=== PATIENT | male | born 1960 | race African-American/Black ===

== ENCOUNTER 2017-08-09 09:35 | Emergency (ER) | payer OTHER ==
[2017-08-09 09:44] VITALS: BP 156/92; BMI 35.1
--- NOTE | 2017-08-09 10:09 | DR.URIAD ---
HPI - Time Seen Time seen: 10:00 - PCP Primary Care Physician: LEXX LIANG - HPI Comment HPI Comment: NO FEVER. COUGH PRODUCTIVE, YELLOW SPUTUM. NOW SOB AND HAVING CHEST PAIN. HISTORY CHF ON LASIX. DYSPNES ON EXERTION. SLEPT IN RECLINER PAST 2 DAYS. - Complaint Chief Complaint Doctors Comments: COLD, COUGH CONGESTION TIMES 5 DAYS. SOB AND CHEST PAIN ALSO. Chief Complaint:: PT C/O CCC, SINCE LAST WEDNESDAY.. Self Treatment fo Chief Complaint: PT STATES " I JUST WANTED TO COME DO TO BE CHECKED DUE TO MY HEART CONDITON,, - Reviewed Nurses Notes Reviewed: Yes - Source History Provided: Patient - Mode of Arrival Mode of Arrival: Ambulatory - Timing Onset of Chief Complaint: 08/03/17 - Context Recent Treated Infections: None History of Respiratory: None - Quality Quality of Cough: Productive Rhinorrhea: Green Shortness of Breath: Mild - Associated Signs and Symptoms Other Signs and Symptoms: Cough, Shortness of Breath PMH - PMH Past Medical History: Yes Past Medical History: CHF, Hypertension Past Medical History Comment: CAD Past Surgical History: Yes Surgical History: Angioplasty/Stents Past Surgical History Comment: DEFIBILATOR.. - Family History History of Family Medical Conditions: No - Social History Does patient currently use any type of tobacco product: No Have you used tobacco products in the last 12 months: No Type of Tobacco Use: None Does any household member use tobacco: No Alcohol Use: None Do you use any recreational Drugs:: No Lives With: Family Lives Where: Home - infectious screening In the last 2 months have you had wt loss of >10#?: NO Have you had fever, night sweats or hemotysis?: No Have you traveled outside the country in the last 6 months?: No Isolation: Standard ROS - Review of Systems Constitutional: No Symptoms Reported Eyes: No Symptoms Reported ENTM: Ear Pain, Nose Discharge, Nose Congestion, Throat Pain Respiratoy: No Symptoms Reported, Productive Cough, Short of Breath. negative: Wheezing, Hemoptysis Cardiovascular: Chest Pain Gastrointestinal/Abdominal: Nausea Genitourinary: No Symptoms Reported Neurological: No Symptoms Reported Musculoskeletal: No Symptoms Reported Integumentary: No Symptoms Reported Hematologic/Lymphatic: No Symptoms Reported Endocrine: No Symptoms Reported All Other Systems: Reviewed and Negative PE - Vital Signs Vitals: Temperature 96.6 F Pulse Rate 73 Respiratory Rate 20 Blood Pressure 156/92 O2 Sat by Pulse Oximetry 96 - General Limitations: No Limitations General Appearance: Alert - Head Head Exam: Normal Inspection - Eyes Eye exam: Normal Appearance - ENT ENT Exam: Normal External Ear Exam External Ear Exam: Normal External Inspection TM/Canal Exam: Bilateral Normal Mouth Exam: Normal Inspection Throat Exam: Tonsillar Erythema, Tonsillomegaly. negative: Tonsillar Exudate - Neck Neck Exam: Trachea Midline - Chest Chest Inspection: Symmetric Chest Wall Rise - Respiratory Respiratory Exam: Normal Lung Sounds Bilat Respiratory Exam: Bilateral Rhonchi, Lower Rhonchi - Cardiovascular Cardiovascular Exam: Regular Rate, Normal Rhythm, Normal Heart Sounds - Abdominal Exam Abdominal Exam: Normal Bowel Sounds, Soft. negative: Tenderness - Extremeties Extremities Exam: Normal Inspection - Back Back Exam: Normal Inspection - Neurologic Neurological Exam: Alert, Oriented X3 - Psychiatric Psychiatric Exam: Normal Affect, Normal Mood - Skin Skin Exam: Normal Color MDM - Differential Diagnosis Differential Diagnosis: Otitis media, Streptococcal pharyngitis, Viral pharyngitis, Pneumonia, Sinsusitis, URI Course - Treatment Treatment: SEE ORDERS. LASIX 80MG IV IN ED AND KCL 2MEQ PO IN ED. - Education/Counseling Education/Counseling: Patient, Education Educated On: Treatment, Diagnosis, Needs for Follow Up ROR - Labs Reviewed Laboratory Results Reviewed?: Yes Result Diagrams: 08/09/17 10:46 08/09/17 10:46 Laboratory: WBC 8.2 X10^3/uL (3.6-10.0) 08/09/17 10:46 RBC 5.08 X10^6/uL (4.7-6.0) 08/09/17 10:46 Hgb 15.3 g/dL (13.5-18.0) 08/09/17 10:46 Hct 44.4 % (42.0-54.0) 08/09/17 10:46 MCV 87.4 fL (80.0-100.0) 08/09/17 10:46 MCH 30.1 pg (27.0-34.0) 08/09/17 10:46 MCHC 34.4 g/dL (33.0-35.0) 08/09/17 10:46 RDW 14.7 % (11.6-16.5) 08/09/17 10:46 Plt Count 186 X10^3/uL (150.0-450.0) 08/09/17 10:46 MPV 9.2 fL (7.4-11.0) 08/09/17 10:46 Neut % 51.3 % (42.0-75.0) 08/09/17 10:46 Lymph % 28.3 % (21.0-51.0) 08/09/17 10:46 [place] % 13.8 % (0.0-13.0) H 08/09/17 10:46 Eos % 5.2 % (0.9-2.9) H 08/09/17 10:46 Baso % 1.4 % (0.2-1.0) H 08/09/17 10:46 Neut # 4.2 x10^3/uL (2.2-4.8) 08/09/17 10:46 Lymph # 2.3 X10^3/uL (1.3-2.9) 08/09/17 10:46 [place] # 1.1 x10^3/uL (0.3-0.8) H 08/09/17 10:46 Eos # 0.4 x10^3/uL (0.0-0.2) H 08/09/17 10:46 Baso # 0.1 X10^3/uL (0.0-0.1) 08/09/17 10:46 Absolute Nucleated RBC 0.1 /100WBC 08/09/17 10:46 Sodium 137 mmol/L (136-145) 08/09/17 10:46 Corrected Sodium TNP 08/09/17 10:46 Potassium 4.2 mmol/L (3.5-5.1) 08/09/17 10:46 Chloride 101 mmol/L (98-107) 08/09/17 10:46 Carbon Dioxide 31.1 mmol/L (21-32) 08/09/17 10:46 BUN 14 mg/dL (7-18) 08/09/17 10:46 Creatinine 1.16 mg/dL (0.70-1.30) 08/09/17 10:46 Est GFR (MDRD) Af Amer > 60 (>60) 08/09/17 10:46 Est GFR (MDRD) Non-Af > 60 (>60) 08/09/17 10:46 Glucose 103 mg/dL (65-99) H 08/09/17 10:46 Calcium 9.2 mg/dL (8.5-10.1) 08/09/17 10:46 Corrected Calcium TNP 08/09/17 10:46 Total Bilirubin 0.70 mg/dL (0.2-1.0) 08/09/17 10:46 AST 30 Units/L (15-37) 08/09/17 10:46 ALT 34 Units/L (12-78) 08/09/17 10:46 Alkaline Phosphatase 101 Units/L (46-116) 08/09/17 10:46 B-Natriuretic Peptide 102 pg/mL (0-79) H 08/09/17 10:46 Total Protein 8.1 g/dL (6.4-8.2) 08/09/17 10:46 Albumin 3.7 g/dL (3.4-5.0) 08/09/17 10:46 Globulin 4.4 g/dL (2.5-4.5) 08/09/17 10:46 Albumin/Globulin Ratio 0.8 Ratio (1.1-2.1) L 08/09/17 10:46 - XRAY XRAY Findings: REPORT DISCUSS WITH PATIENT. - Diagnosis Discharge Problem: Bronchitis CHF (congestive heart failure) Qualifiers: Congestive heart failure type: combined Congestive heart failure chronicity: acute on chronic Qualified Code(s): I50.43 - Acute on chronic combined systolic (congestive) and diastolic (congestive) heart failure - Discharge Plan Disposition: HOME, SELF-CARE Condition: Stable Prescriptions: Benzonatate [TESSALON PERLES *] 200 mg PO TID PRN #30 cap PRN Reason: Cough Doxycycline Monohydrate 100 mg PO BID #20 tablet - Follow ups/Referrals Follow ups/Referrals: NFD,None [Primary Care Provider] - 08/10/17 - Instructions Instructions: Acute Bronchitis, [id number], Heart Failure, [id number] Additional Instructions: RETURN TO ED IF WORSE.
[2017-08-09 11:02] LABS: BASOPHILS # (AUTO) 0.1 X10^3/uL (0.0-0.1); BASOPHILS % (AUTO) 1.4 % (0.2-1.0); EOSINOPHILS # (AUTO) 0.4 x10^3/uL (0.0-0.2); EOSINOPHILS % (AUTO) 5.2 % (0.9-2.9); HEMATOCRIT 44.4 % (42.0-54.0); HEMOGLOBIN 15.3 g/dL (13.5-18.0); LYMPHOCYTES # (AUTO) 2.3 X10^3/uL (1.3-2.9); LYMPHOCYTES % (AUTO) 28.3 % (21.0-51.0); MEAN CORPUSCULAR HEMOGLOBIN 30.1 pg (27.0-34.0); MEAN CORPUSCULAR HGB CONC 34.4 g/dL (33.0-35.0); MEAN CORPUSCULAR VOLUME 87.4 fL (80.0-100.0); MEAN PLATELET VOLUME 9.2 fL (7.4-11.0); MONOCYTES # (AUTO) 1.1 x10^3/uL (0.3-0.8); MONOCYTES % (AUTO) 13.8 % (0.0-13.0); NEUTROPHILS # (AUTO) 4.2 x10^3/uL (2.2-4.8); NEUTROPHILS % (AUTO) 51.3 % (42.0-75.0); PLATELET COUNT 186 X10^3/uL (150.0-450.0); RED BLOOD COUNT 5.08 X10^6/uL (4.7-6.0); RED CELL DISTRIBUTION WIDTH 14.7 % (11.6-16.5); WHITE BLOOD COUNT 8.2 X10^3/uL (3.6-10.0)
--- NOTE | 2017-08-09 11:04 | RAD ---
Examination: Chest, PA and lateral views History: Chest pain Findings: There is mild cardiomegaly with pacemaker. There is cephalization of pulmonary blood flow w ith interstitial prominence. No consolidation or pleural fluid identified. Impression: Cardiomegaly with pacer, vascular changes consistent with pulmonary venous hypertension/e nicky CHF. Reported By:
[2017-08-09 11:09] LABS: ALANINE AMINOTRANSFERASE 34 Units/L (12-78); ALBUMIN 3.7 g/dL (3.4-5.0); ALKALINE PHOSPHATASE 101 Units/L (46-116); ASPARTATE AMINO TRANSFERASE 30 Units/L (15-37); BLOOD UREA NITROGEN 14 mg/dL (7-18); CALCIUM 9.2 mg/dL (8.5-10.1); CARBON DIOXIDE 31.1 mmol/L (21-32); CHLORIDE 101 mmol/L (98-107); CREATININE 1.16 mg/dL (0.70-1.30); SODIUM 137 mmol/L (136-145); TOTAL PROTEIN 8.1 g/dL (6.4-8.2); eGFR BLACK RACES > 60 (>60); eGFR NON BLACK RACES > 60 (>60)
[2017-08-09 11:20] LABS: B-TYPE NATRIURETIC PEPTIDE 102 pg/mL (0-79)
[2017-08-09] MEDS ORDERED: LASIX IVP ONE ×2 (11:34→11:48)
[2017-08-09] MEDS ORDERED: ROCEPHIN 1 GM IV PREMIX 1 GM/50 ML IV.SOLN. IV ONE (11:36)
[2017-08-09] MEDS ORDERED: ROCEPHIN VIAL 1 GM 1 GM in NS 50 ML IV + SPIKE MINIBAG* 50 ML IV ONE (11:45)
[2017-08-09] MEDS ORDERED: LASIX IVP SCH (12:00)
[2017-08-09] MEDS ORDERED: K-DUR TAB 20 MEQ PO ONE ×2 (12:25→12:40)
== END 2017-08-09 12:49 | disposition home or self-care (01) ==
LOC: ER 09:52
DX: I50.43 Acute on chronic combined systolic (congestive) and diastolic (congestive) heart failure (principal); J40 Bronchitis, not specified as acute or chronic; I51.7 Cardiomegaly
CPT/HCPCS: 36415; 71020; 80053; 83880; 85025; 96365; 96374; 96375; 99282; 99283; A4222; J0696; J1940

== ENCOUNTER 2017-11-26 10:23 | Emergency (ER) | payer OTHER ==
[2017-11-26 10:30] VITALS: BMI 34.9
--- NOTE | 2017-11-26 10:48 | DR.N/VMALE ---
HPI - Time Seen Time seen: 10:35 - Primary Care Physician Primary Care Physician: isha in [place] - HPI Comment HPI Comment: PAIN AND DISCOMFORT WORSE TODAY. PRESSURE PAIN. HISTORY CAD, S/P STENDS AND HAVE INDWELLING PACER DEVICE. - Complaints Chief Complaint Doctors Comments: CHEST AND EPIGATRIC PAIN FOR OVER ONE WEEK. Chief Complaint:: pt stated he has been nauseated on and off for a week. when he gets up and moves its worse with pressure in his epigastric area. - Reviewed Nurses Notes Reviewed: Yes - Source History Provided: Patient - Mode of Arrival Mode of Arrival: Ambulatory - Timing Onset of Chief Complaint: 11/19/17 - Context Onset: Spontaneous Recent: None History of: None - Associated Signs and Symptoms Abdominal Pain Quality: Burning, Other (PRESSURE) Abdominal Pain Location: Epigastric Symptoms: Abdominal Pain (EPIGASTRIC) PMH - PMH Past Medical History: Yes Past Medical History: CHF, Hypertension Past Surgical History: Yes Surgical History: Angioplasty/Stents - Family History History of Family Medical Conditions: Yes Family Medical History: Cancer - Social History Does patient currently use any type of tobacco product: No Have you used tobacco products in the last 12 months: No Type of Tobacco Use: None Does any household member use tobacco: No Alcohol Use: None Do you use any recreational Drugs:: No Lives With: Family Lives Where: Home - infectious screening In the last 2 months have you had wt loss of >10#?: NO Have you had fever, night sweats or hemotysis?: No Have you traveled outside the country in the last 6 months?: No Isolation: Standard ROS - Review of Systems Constitutional: negative: Chills, Fever Eyes: No Symptoms Reported ENTM: No Symptoms Reported Respiratoy: Short of Breath (ON EXERTION). negative: Productive Cough, Non- Productive Cough, Wheezing, Hemoptysis Cardiovascular: Chest Pain Gastrointestinal/Abdominal: Abdominal Pain Genitourinary: negative: Dysuria, Hematuria Neurological: No Symptoms Reported Musculoskeletal: Muscle Pain Integumentary: No Symptoms Reported Hematologic/Lymphatic: No Symptoms Reported Endocrine: No Symptoms Reported All Other Systems: Reviewed and Negative PE - Vital Signs Vitals: Temperature 98.4 F Pulse Rate [Apical] 113 Pulse Rate 85 Respiratory Rate 17 Blood Pressure [Right Arm] 150/80 Blood Pressure 141/79 O2 Sat by Pulse Oximetry 99 - General Limitations: No Limitations General Appearance: Alert - Head Head Exam: Normal Inspection - Eyes Eye exam: Normal Appearance - ENT ENT Exam: Normal External Ear Exam - Chest Chest Inspection: Symmetric Chest Wall Rise - Respiratory Respiratory Exam: Normal Lung Sounds Bilat Respiratory Exam: Bilateral Clear to Auscultation - Cardiovascular Cardiovascular Exam: Regular Rate, Normal Rhythm, Normal Heart Sounds - Abdominal Exam Abdominal Exam: Normal Inspection - Rectal Rectal Exam: Deferred - Exam: Male: Deferred - Extremities Extremities Exam: Normal Inspection - Back Back Exam: Normal Inspection - Neurologic Neurological Exam: Alert, Oriented X3, CN II-XII Intact. negative: Motor Sensory Deficit - Psychiatric Psychiatric Exam: Normal Affect, Normal Mood - Skin Skin Exam: Normal Color MDM - Differential Diagnosis Differential Diagnosis: Considerations may Include:: Gastroenteritis, Pancreatitis, PUD, Urolithiasis Differential Diagnosis Comment: ID, PE, ANGINA Course - Treatment Treatment: SEE ORDERS. - Education/Counseling Education/Counseling: Patient, Education Educated On: Diagnosis ROR - Labs Reviewed Laboratory Results Reviewed?: Yes Result Diagrams: 11/26/17 11:00 11/26/17 11:00 Laboratory: WBC 9.4 X10^3/uL (3.6-10.0) 11/26/17 11:00 RBC 4.66 X10^6/uL (4.7-6.0) L 11/26/17 11:00 Hgb 13.9 g/dL (13.5-18.0) 11/26/17 11:00 Hct 41.1 % (42.0-54.0) L 11/26/17 11:00 MCV 88.2 fL (80.0-100.0) 11/26/17 11:00 MCH 29.8 pg (27.0-34.0) 11/26/17 11:00 MCHC 33.8 g/dL (33.0-35.0) 11/26/17 11:00 RDW 15.5 % (11.6-16.5) 11/26/17 11:00 Plt Count 221 X10^3/uL (150.0-450.0) 11/26/17 11:00 MPV 9.1 fL (7.4-11.0) 11/26/17 11:00 Neut % (Auto) 67.9 % (42.0-75.0) 11/26/17 11:00 Lymph % (Auto) 19.0 % (21.0-51.0) L 11/26/17 11:00 [place] % (Auto) 10.0 % (0.0-13.0) 11/26/17 11:00 Eos % (Auto) 2.2 % (0.9-2.9) 11/26/17 11:00 Baso % (Auto) 0.9 % (0.2-1.0) 11/26/17 11:00 Neut # (Auto) 6.4 x10^3/uL (2.2-4.8) H 11/26/17 11:00 Lymph # (Auto) 1.8 X10^3/uL (1.3-2.9) 11/26/17 11:00 [place] # (Auto) 0.9 x10^3/uL (0.3-0.8) H 11/26/17 11:00 Eos # (Auto) 0.2 x10^3/uL (0.0-0.2) 11/26/17 11:00 Baso # (Auto) 0.1 X10^3/uL (0.0-0.1) 11/26/17 11:00 Absolute Nucleated RBC 0.0 /100WBC 11/26/17 11:00 D-Dimer 1610 ng/mL (0-400) H* 11/26/17 11:00 Sodium 141 mmol/L (136-145) 11/26/17 11:00 Corrected Sodium TNP 11/26/17 11:00 Potassium 3.8 mmol/L (3.5-5.1) 11/26/17 11:00 Chloride 103 mmol/L (98-107) 11/26/17 11:00 Carbon Dioxide 27.9 mmol/L (21-32) 11/26/17 11:00 BUN 17 mg/dL (7-18) 11/26/17 11:00 Creatinine 1.02 mg/dL (0.70-1.30) 11/26/17 11:00 Est GFR (MDRD) Af Amer > 60 (>60) 11/26/17 11:00 Est GFR (MDRD) Non-Af > 60 (>60) 11/26/17 11:00 Glucose 91 mg/dL (65-99) 11/26/17 11:00 Calcium 8.7 mg/dL (8.5-10.1) 11/26/17 11:00 Corrected Calcium TNP 11/26/17 11:00 Total Bilirubin 1.20 mg/dL (0.2-1.0) H 11/26/17 11:00 AST 66 Units/L (15-37) H 11/26/17 11:00 ALT 135 Units/L (12-78) H 11/26/17 11:00 Alkaline Phosphatase 106 Units/L (46-116) 11/26/17 11:00 Creatine Kinase 280 Units/L (39-308) 11/26/17 14:34 CK-MB (CK-2) 2.5 ng/mL (0-4.0) 11/26/17 14:34 CK/CKMB % Calc 0.9 % (<4) 11/26/17 14:34 Troponin I 0.53 ng/mL (0-1.5) 11/26/17 14:34 Total Protein 8.0 g/dL (6.4-8.2) 11/26/17 11:00 Albumin 3.7 g/dL (3.4-5.0) 11/26/17 11:00 Globulin 4.3 g/dL (2.5-4.5) 11/26/17 11:00 Albumin/Globulin Ratio 0.9 Ratio (1.1-2.1) L 11/26/17 11:00 Amylase 67 Units/L (25-115) 11/26/17 11:00 Lipase 167 Units/L (73-393) 11/26/17 11:00 H. pylori IgG Antibody Positive (NEGATIVE) A 11/26/17 11:00 - XRAY XRAY Interpreted by: Radiologist XRAY Findings: REPORT DISCUSS WITH PATIENT. - Diagnosis Discharge Problem: Helicobacter pylori antibody positive, Cardiac enzymes elevated Chest pain Qualifiers: Chest pain type: precordial pain Qualified Code(s): R07.2 - Precordial pain CHF (congestive heart failure) Qualifiers: Heart failure type: combined systolic and diastolic Heart failure chronicity: acute on chronic Qualified Code(s): I50.43 - Acute on chronic combined systolic (congestive) and diastolic (congestive) heart failure - Discharge Plan Disposition: 07 AGAINST MEDICAL ADVICE Condition: Stable - Follow ups/Referrals Follow ups/Referrals: NFD,None [Primary Care Provider] - 3 days - Instructions Instructions: Helicobacter Pylori Antibodies Test, Heart Failure, [id number] , Chest Pain Observation Additional Instructions: RETURN TO ED WISH. YOU ARE DISCHARGE AMA DUE TO THE FACT THAT YOU CARDIAC ENZYME IS ABNORMAL AND WE RECOMMEND IN HOSPITAL OBSERVATION. YOU DO NOT WISH TO STAY AT THIS TIME.
[2017-11-26 11:08] LABS: BASOPHILS # (AUTO) 0.1 X10^3/uL (0.0-0.1); BASOPHILS % (AUTO) 0.9 % (0.2-1.0); EOSINOPHILS # (AUTO) 0.2 x10^3/uL (0.0-0.2); EOSINOPHILS % (AUTO) 2.2 % (0.9-2.9); HEMATOCRIT 41.1 % (42.0-54.0); HEMOGLOBIN 13.9 g/dL (13.5-18.0); LYMPHOCYTES # (AUTO) 1.8 X10^3/uL (1.3-2.9); MEAN CORPUSCULAR HEMOGLOBIN 29.8 pg (27.0-34.0); MEAN CORPUSCULAR HGB CONC 33.8 g/dL (33.0-35.0); MEAN CORPUSCULAR VOLUME 88.2 fL (80.0-100.0); MEAN PLATELET VOLUME 9.1 fL (7.4-11.0); MONOCYTES # (AUTO) 0.9 x10^3/uL (0.3-0.8); NEUTROPHILS # (AUTO) 6.4 x10^3/uL (2.2-4.8); NEUTROPHILS % (AUTO) 67.9 % (42.0-75.0); PLATELET COUNT 221 X10^3/uL (150.0-450.0); RED BLOOD COUNT 4.66 X10^6/uL (4.7-6.0); RED CELL DISTRIBUTION WIDTH 15.5 % (11.6-16.5); WHITE BLOOD COUNT 9.4 X10^3/uL (3.6-10.0)
[2017-11-26 11:28] LABS: BLOOD UREA NITROGEN 17 mg/dL (7-18); CALCIUM 8.7 mg/dL (8.5-10.1); CARBON DIOXIDE 27.9 mmol/L (21-32); CHLORIDE 103 mmol/L (98-107); CREATININE 1.02 mg/dL (0.70-1.30); SODIUM 141 mmol/L (136-145); TROPONIN I 0.56 ng/mL (0-1.5); eGFR BLACK RACES > 60 (>60); eGFR NON BLACK RACES > 60 (>60)
[2017-11-26 11:32] LABS: ALANINE AMINOTRANSFERASE 135 Units/L (12-78); ALBUMIN 3.7 g/dL (3.4-5.0); ALKALINE PHOSPHATASE 106 Units/L (46-116); AMYLASE 67 Units/L (25-115); ASPARTATE AMINO TRANSFERASE 66 Units/L (15-37); CKMB % 0.9 % (<4); CREATINE KINASE 306 Units/L (39-308); CREATINE KINASE MB 2.8 ng/mL (0-4.0); LIPASE 167 Units/L (73-393)
[2017-11-26] MEDS ORDERED: PEPCID 20 MG IV PREMIX* 20 MG/50 ML BAG IV ONE ×2 (11:57→11:58)
[2017-11-26 13:16] VITALS: BP 150/80
--- NOTE | 2017-11-26 15:01 | CT ---
CT angiogram chest with contrast Indication: Chest pain, nausea and elevated D-dimer Technique: Helical images through the chest after IV contrast per protocol. Coronal and sagittal refo rmats provided. MIP images provided. Findings: No recent prior CTs available. Limited images through the upper abdomen shows calcifications of the left kidney suggesting nonobstru cting stones. Vascular calcifications noted. Recanalization of the umbilical vein noted suggesting ei ther hepatic congestion or cirrhosis. Mild stranding in the right upper quadrant noted. Review of bone windows demonstrates no destructive osseous lesion. Chest: There is moderate to severe cardiomegaly. Stimulator device with leads tracking into the left neck noted over the left chest. There is no pneumothorax or effusion. Scarring is seen in the lung ba ses. Increased interlobular septal thickening is seen dependently as well. Right upper lobe lung nodu le seen on axial image 45 measures 4 mm. Scattered ground-glass haziness is noted. Pulmonary artery bolus timing is adequate, without large central pulmonary artery filling defect iden tified. Due to cardiac dysfunction, slow transit of contrast into the distal pulmonary arteries is no monty, without convincing filling defect. However, evaluation of the distal segmental and subsegmental pulmonary arteries is thereby limited. Shotty mediastinal lymph nodes noted. Largest in the left periaortic region measures 1.7 cm on axial image 34. Aortic pulmonary/peritracheal lymph nodes measures 1.8 cm on axial image 37. Impression: 1. No large central pulmonary thromboembolus. 2. Bolus timing limits sensitivity in the distal pulmonary artery is. 3. Cardiomegaly and mild edema suggesting CHF. 4. Right upper lobe lung nodule merits follow-up CT in 6 months to exclude neoplasm. 5. Mild stranding in the right upper quadrant and possible hepatic cirrhosis. Ultrasound gallbladder follow-up should be considered to exclude cholecystitis. 6. Nonobstructing left renal stones. Reported By:
[2017-11-26 15:45] LABS: CKMB % 0.9 % (<4); CREATINE KINASE MB 2.5 ng/mL (0-4.0); TROPONIN I 0.53 ng/mL (0-1.5)
== END 2017-11-26 17:01 | disposition left against medical advice (07) ==
LOC: ER 10:42
DX: R07.2 Precordial pain (principal); I50.43 Acute on chronic combined systolic (congestive) and diastolic (congestive) heart failure; R94.31 Abnormal electrocardiogram [ECG] [EKG]; B96.81 Helicobacter pylori [H. pylori] as the cause of diseases classified elsewhere; R74.8 Abnormal levels of other serum enzymes; I51.7 Cardiomegaly; R60.9 Edema, unspecified
CPT/HCPCS: 36415; 71275; 80053; 82150; 82550; 82553; 83690; 84484; 85025; 85378; 86677; 93005; 93010; 96365; 96367; 96374; 99283; A4222; S0028